=== PATIENT | male | born 1935 | race Caucasian/White ===

== ENCOUNTER → 2017-12-11 13:24 | Outpatient (CLI) | payer MEDICARE, OTHER, SELFPAY ==
[2017-12-11 14:42] LABS: Prothrombin Time 21.9 SECONDS (10.1-12.7)
== END ==
PROVIDERS: PCP Family Medicine; Visit Provider Family Medicine
DX: I48.91 Unspecified atrial fibrillation (principal)
CPT/HCPCS: 36415; 85610

== ENCOUNTER → 2018-01-18 09:00 | Outpatient (CLI) | payer MEDICARE, OTHER, SELFPAY ==
[2018-01-18 10:45] LABS: Alanine Aminotransferase 34 IU/L (21-72); Albumin 3.9 g/dL (3.5-5.0); Albumin Globulin Ratio 1.3 (1.0-2.8); Alkaline Phosphatase 70 U/L (38-126); Aspartate Aminotransferase 32 IU/L (17-59); BUN Creatinine Ratio 19.1 (6-22); Bilirubin Total 0.6 mg/dL (0.2-1.3); Blood Urea Nitrogen 21 mg/dL (9-20); Calcium 8.5 mg/dL (8.4-10.2); Carbon Dioxide 30 mmol/L (22-32); Chloride 105 mmol/L (98-107); Estimated Glomerular Filt Rate > 60.0 mL/min (>60); Globulin 2.9 g/dL (1.7-4.1); Glucose 97 mg/dL (80-110); HEMOLYSIS < 15 (0-50); Magnesium 2.1 mg/dL (1.6-2.3); Potassium 4.1 mmol/L (3.4-5.1); Sodium 144 mmol/L (137-145); Total Protein 6.8 g/dL (6.3-8.2)
[2018-01-18 11:13] LABS: Thyroid Stimulating Hormone 1.53 uIU/mL (0.47-4.68)
[2018-01-23 08:10] LABS: Lipoprofile NMR SEE SEPARATE REPORTS
== END ==
PROVIDERS: Family Provider Student in an Organized Health Care Education/Training Program; PCP Student in an Organized Health Care Education/Training Program; Visit Provider Specialist
DX: E78.2 Mixed hyperlipidemia (principal); I10 Essential (primary) hypertension; Z79.899 Other long term (current) drug therapy; I48.0 Paroxysmal atrial fibrillation
CPT/HCPCS: 36415; 80053; 83704; 83735; 84443

== ENCOUNTER → 2018-01-23 09:14 | Outpatient (CLI) | payer MEDICARE, OTHER, SELFPAY ==
--- NOTE | 2018-01-23 | DI.ECHO.S_ITS ---
[facility] +---------+ [facility] +---------+ : : [address] : : : : [place], [place] : : : : [id number] : : : : Phone: [phone] +---------+ Echocardiogram Report + + :Name: TYRESE ALBERTO Study Date: 01/23/2018 Height: 70 in : :[facility] Exam Location: [facility] Weight: 175 lb : : Gender: Male BSA: 2.0 m2 : :: 1935 Age: 83 yrs BP: 105/60 mmHg: :Reason For Study: MITRAL REGURGITATION : : Performed By: Brady Valera : :Referring: SUAD DEE : + + Interpretation Summary Left ventricular systolic function is normal without focal wall motion abnormalities with the ejection fraction visually estimated to be 65-70% and appears unchanged compared to the previous study. The left ventricle is mildly dilated and left ventricular wall thickness is mildly increased, both somewhat progressive compared to the previous study. The right ventricle is mild to moderately dilated and right ventricular systolic function is at the lower limits of normal, but appears similar compared to the previous study. The right ventricular systolic pressure is estimated to be at least 31 mmHg based on an estimated right atrial pressure of 8 mm Hg, and is likely similar compared to the previous study. Both atria are severely dilated. The left atrium has mildly increased in size since the prior echo exam. The mitral valve leaflets appear mildly thickened and highly mobile with redundan and significant bileaflet prolapse, the anterior leaflet more so than the posterior leaflet. There is probable moderate to severe mitral regurgitation with an eccentric jet of mitral regurgitation that is directed posteriorly that is more prominent but better imaged compared to the previous study. There is mild to moderate tricuspid regurgitation and mild to moderate pulmonic regurgitation that are similar compared to the previous study. 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 There is trace aortic regurgitation that is unchanged compared to the previous study. 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 Procedure: A two-dimensional transthoracic echocardiogram with color flow and Doppler was performed. The study quality was technically adequate. Comparison is made with the echocardiogram of 02/10/16. The patient was in normal sinus rhythm during the exam. Left Ventricle: The left ventricle is mildly dilated. Left ventricular wall thickness is mildly increased. This is both somewhat progressive compared to the previous study. Left ventricular systolic function is normal without focal wall motion abnormalities. The ejection fraction is estimated to be 65-70%. This is unchanged compared to the previous study. Diastolic function could not be accurately assessed due to contradictory data. Right Ventricle: The right ventricle is mild to moderately dilated. Right ventricular systolic function is at the lower limits of normal. This is likely similar compared to the previous study. Atria: Both atria are severely dilated. The left atrium has mildly increased in size since the prior echo exam. The interatrial septum is intact with no evidence for an atrial septal defect. Mitral Valve: The mitral valve leaflets appear mildly thickened and highly mobile with redundant, elongated chordae with increased mobility and significant bileaflet prolaps, the anterior mitral valve leaflet more so than the posterior leaflet. There is moderate to severe mitral regurgitation. There is an eccentric jet of mitral regurgitation that is directed posteriorly. This is more prominent but better imaged compared to the previous study. 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 The prosthetic aortic valve is well-seated. The gradients through the prosthetic aortic valve are within the normal range for this type of valve. There is trace aortic regurgitation. This is unchanged compared to the previous study. Tricuspid Valve: The tricuspid valve is normal in structure and function. There is mild to moderate tricuspid regurgitation. The right ventricular systolic pressure is estimated to be at least 31 mmHg based on an estimated right atrial pressure of 8 mm Hg. This is similar compared to the previous study. Pulmonic Valve: The pulmonic valve is not well seen, but is grossly normal. There is mild to moderate pulmonic regurgitation. This is similar compared to the previous study. 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 The aortic arch is mildly enlarged. This is unchanged compared to the previous study. The pulmonary artery is normal size. The IVC is dilated (diameter is greater than 2.1 cm) yet it collapses greater than 50% with a sniff. This suggests a right atrial pressure of 8 mm Hg. Pericardium/ Pleura There is no pericardial effusion. There is no pleural effusion. MMode/2D Measurements & Calculations LVIDd: 6.2 cm LVOT diam: 2.0 cm LVIDs: 3.3 cm Ao root diam: 5.0 cm FS: 47.1 % Aortic Jxn: 4.2 cm EPSS: 1.2 cm asc Aorta Diam: 4.4 cm IVSd: 1.2 cm Ao Arch Diam (Prox Trans): 3.5 cm LVPWd: 1.3 cm LV carrington. diameter/BSA (cm/m^2): 3.1 LV sys. diameter/BSA (cm/m^2): 1.7 LA dimension: 4.6 cm RA long axis: 6.1 cm LA A2 area: 47.7 cm2 RA area: 29.2 cm2 LA A4 area: 32.2 cm2 RA vol: 118.8 ml LA length (vol): 6.9 cm RA : 60.2 ml/m2 LA vol: 188.4 ml IVC diam: 2.3 cm LA vol index: 95.5 ml/m2 RVD1 (basal): 5.1 cm RVD2 (mid): 5.1 cm Doppler Measurements & Calculations Ao V2 max: 213.2 cm/sec LVOT Max Jake: 100.7 cm/sec Ao V2 mean: 138.3 cm/sec LV V1 max P.1 mmHg Ao max P.2 mmHg LV V1 VTI: 23.1 cm Ao mean P.8 mmHg DEANDRE(I,D): 1.7 cm2 Ao V2 VTI: 42.9 cm DEANDRE(V,D): 1.5 cm2 sev ratio: 0.54 DEANDRE indexed to BSA (cm^2/m^2): 0.85 MV E max jake: 105.8 cm/sec TR max jake: 239.4 cm/sec MV A max jake: 68.0 cm/sec TR max P.9 mmHg MV E/A: 1.6 PA V2 max: 84.6 cm/sec Med Peak E' Jake: 7.0 cm/sec PA V2 mean: 58.5 cm/sec E/E' med: 15.1 PA mean P.5 mmHg Lat Peak E' Jake: 12.1 cm/sec PA pr(Accel): 42.4 mmHg E/E' lat: 8.8 PA Accel Time: 0.08 sec E/e' average: 11.9 MV dec time: 0.25 sec Pulm A Revs Jake: 29.7 cm/sec Reading Physician:LEBRON
== END ==
PROVIDERS: Family Provider Student in an Organized Health Care Education/Training Program; PCP Student in an Organized Health Care Education/Training Program; Visit Provider Specialist
DX: I08.1 Rheumatic disorders of both mitral and tricuspid valves (principal); Z95.2 Presence of prosthetic heart valve
CPT/HCPCS: 93306

== ENCOUNTER → 2018-05-31 13:24 | Outpatient (CLI) | payer MEDICARE, OTHER, SELFPAY ==
--- NOTE | 2018-05-31 13:26 | DI.RAD.S_ITS ---
PROCEDURE: XR KNEE STANDING BI INDICATIONS: chronic pain TECHNIQUE: 3 views of the right knee, and 3 views of the left knee. COMPARISON: [facility] [place], [place], BILATERAL KNEE 3VW, 10/22/2013, 10:44. FINDINGS: Bones: No acute fractures or dislocations. On the right there is severe medial joint space narrowing with [id number] appearance. Scattered subchondral sclerosis and spurring. Moderate knee joint effusion. On the left, there is severe joint space narrowing of the medial and lateral compartments. Left knee joint effusion. There is a large infrapatellar loose body as before. 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 Mild interval progression bilaterally since 10/22/13 Large left infrapatellar loose body as before Dictated by: Glen Contreras M.D. on 05/31/2018 at 15:55 Approved by: Glen Contreras M.D. on 05/31/2018 at 16:02
== END ==
PROVIDERS: Family Provider Student in an Organized Health Care Education/Training Program; PCP Student in an Organized Health Care Education/Training Program; Visit Provider Physical Medicine & Rehabilitation
DX: M17.0 Bilateral primary osteoarthritis of knee (principal); M25.462 Effusion, left knee; M25.461 Effusion, right knee; M23.42 Loose body in knee, left knee; I48.91 Unspecified atrial fibrillation; Z95.2 Presence of prosthetic heart valve; R26.89 Other abnormalities of gait and mobility; Z68.23 Body mass index [BMI] 23.0-23.9, adult
CPT/HCPCS: 73565; 99214

== ENCOUNTER → 2018-07-23 08:55 | Outpatient (CLI) | payer MEDICARE, OTHER, SELFPAY ==
[2018-07-23 10:36] LABS: Alanine Aminotransferase 20 IU/L (21-72); Albumin 3.4 g/dL (3.5-5.0); Albumin Globulin Ratio 1.4 (1.0-2.8); Alkaline Phosphatase 62 U/L (38-126); Aspartate Aminotransferase 24 IU/L (17-59); Bilirubin Total 0.7 mg/dL (0.2-1.3); Blood Urea Nitrogen 17 mg/dL (9-20); Calcium 8.5 mg/dL (8.4-10.2); Carbon Dioxide 30 mmol/L (22-32); Chloride 103 mmol/L (98-107); Estimated Glomerular Filt Rate > 60.0 mL/min (>60); Globulin 2.5 g/dL (1.7-4.1); Glucose 87 mg/dL (80-110); HEMOLYSIS < 15 (0-50); Magnesium 2.2 mg/dL (1.6-2.3); Potassium 4.4 mmol/L (3.4-5.1); Sodium 138 mmol/L (137-145); Total Protein 5.9 g/dL (6.3-8.2)
[2018-07-25 08:33] LABS: Lipoprofile NMR SEE SEPERATE REPORT
== END ==
PROVIDERS: PCP Student in an Organized Health Care Education/Training Program; Visit Provider Specialist
DX: I48.0 Paroxysmal atrial fibrillation (principal); E78.2 Mixed hyperlipidemia
CPT/HCPCS: 36415; 80053; 83704; 83735

== ENCOUNTER → 2019-05-13 09:08 | Outpatient (CLI) | payer MEDICARE, OTHER, SELFPAY ==
[2019-05-13 11:06] LABS: Alanine Aminotransferase 22 IU/L (<50); Albumin 3.7 g/dL (3.5-5.0); Albumin Globulin Ratio 1.3 (1.0-2.8); Alkaline Phosphatase 80 U/L (38-126); Aspartate Aminotransferase 39 IU/L (17-59); Bilirubin Total 0.6 mg/dL (0.2-1.3); Blood Urea Nitrogen 18 mg/dL (9-20); Calcium 8.7 mg/dL (8.4-10.2); Carbon Dioxide 31 mmol/L (22-32); Chloride 105 mmol/L (98-107); Estimated Glomerular Filt Rate > 60.0 mL/min (>60); Globulin 2.9 g/dL (1.7-4.1); Glucose 90 mg/dL (80-110); HEMOLYSIS < 15 (0-50); Magnesium 2.1 mg/dL (1.6-2.3); Potassium 4.6 mmol/L (3.4-5.1); Sodium 139 mmol/L (137-145); Total Protein 6.6 g/dL (6.3-8.2)
[2019-05-15 12:01] LABS: Cholesterol, Total 152 mg/dL (100-199); HDL-Cholesterol 70 mg/dL (>39); HDL-Particle (Total) 44.2 umol/L (>=30.5); Historical Reading Comment: (.); LDL Particle 793 nmol/L (<1000); LDL Size 20.6 nm (>20.5); LDL-Cholsterol 66 mg/dL (0-99); LP-IR Score 42 (<=45); Small LDL- Particle 302 nmol/L (<=527); Triglycerides 79 mg/dL (0-149)
== END ==
PROVIDERS: PCP Student in an Organized Health Care Education/Training Program; Referring Provider Specialist; Visit Provider Specialist
DX: I48.0 Paroxysmal atrial fibrillation (principal); E78.2 Mixed hyperlipidemia
CPT/HCPCS: 36415; 80053; 80061; 83704; 83735

== ENCOUNTER → 2019-05-15 12:44 | Outpatient (CLI) | payer MEDICARE, OTHER, SELFPAY ==
--- NOTE | 2019-05-15 | DI.ECHO.S_ITS ---
[facility] [facility] +---------+ Hospital +---------+ : : [address] : : : : [place] : : : : [id number] : : : : Phone: [phone] +---------+ Echocardiogram Report + + :Name: TYRESE ALBERTO Study Date: 05/15/2019 Height: 70 in : :[facility] Weight: 170 lb : : Gender: Male BSA: 1.9 m2 : :: 1935 Age: 84 yrs BP: 142/88 mmHg: :Reason For Study: Mitral Insufficiency : :Ordering Physician: Suad : :Ulises Performed By: Fauzia Newman : :Referring: SUAD DEE : + + Interpretation Summary Left ventricular systolic function is normal without focal wall motion abnormalities with the ejection fraction visually estimated to be 65-70%. Left ventricular size is at the upper limits of normal with wall thickness that is mild-moderately increased but appears unchanged compared to the previous study. Diastolic function could not be accurately assessed due to atrial fibrillation. There has been no significant change since the previous study. The right ventricle is at the upper limits of normal in size and systolic function is mildly reduced and appears slightly smaller compared to the previous study. The right ventricular systolic pressure is estimated to be at least 42 mmHg based on an estimated right atrial pressure of 8 mm Hg, and is likely modestly higher compared to the previous study. Both atria are severely dilated but unchanged compared to the previous study. Redundant elongated chordae are noted with bileaflet prolapse, anterior leaflet more than posterior leaflet, with probable moderate to severe mitral regurgitation with an eccentric jet of mitral regurgitation that is directed posteriorly but is not well seen yet grossly appears unchanged from the previous study, if anything slightly less impressive. 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 There is moderate tricuspid regurgitation that is slightly more prominent compared to the previous study. There is moderate pulmonic regurgitation that is unchanged compared to the previous study. 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 While the aortic arch measures larger, it was measured in a different location than on the previous study. The patient was in atrial fibrillation with heart rates between 98-116 bpm during the exam which is new and faster compared to the previous study. Procedure: A two-dimensional transthoracic echocardiogram with color flow and Doppler was performed. The study quality was technically adequate. Comparison is made with the echocardiogram of 01/23/2018. The patient was in atrial fibrillation with heart rates between 98-116 bpm during the exam. This is new and faster compared to the previous study. Left Ventricle: Left ventricular size is at the upper limits of normal. Left ventricular wall thickness is mild-moderately increased. This is unchanged compared to the previous study. Left ventricular systolic function is normal without focal wall motion abnormalities. The ejection fraction is estimated to be 65-70%. Diastolic function could not be accurately assessed due to atrial fibrillation. There has been no significant change since the previous study. Right Ventricle: The right ventricle is at the upper limits of normal in size. Right ventricular systolic function is mildly reduced. This is slightly smaller compared to the previous study. Atria: Both atria are severely dilated. This is unchanged compared to the previous study. There is no Doppler evidence for an interatrial shunt. Mitral Valve: The mitral valve leaflets appear mildly thickened, but open well. Redundant elongated chordae are noted. with bileaflet prolapse, anterior leaflet more than posterior leaflet. There is moderate to severe mitral regurgitation. There is an eccentric jet of mitral regurgitation that is directed posteriorly. that is not well seen but grossly appears unchanged from the previous study, if anything slightly less impressive. 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 The prosthetic aortic valve is well-seated. The gradients through the prosthetic aortic valve are within the normal range for this type of valve. There is trace aortic regurgitation. There has been no significant change since the previous study. Tricuspid Valve: The tricuspid valve is normal in structure and function. There is moderate tricuspid regurgitation. This is slightly more prominent compared to the previous study. The right ventricular systolic pressure is estimated to be at least 42 mmHg based on an estimated right atrial pressure of 8 mm Hg. and is likely modestly higher compared to the previous study. Pulmonic Valve: The pulmonic valve is not well visualized. There is moderate pulmonic regurgitation. This is unchanged compared to the previous study. 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 The aortic arch is moderately enlarged. This is likely unchanged compared to the previous study. While thge aortic arch measures larger, it was measured in a different location than on the previous study. The IVC is dilated (diameter is greater than 2.1 cm) yet it collapses greater than 50% with a sniff. This suggests a right atrial pressure of 8 mm Hg. Pericardium/ Pleura There is no pericardial effusion. There is no pleural effusion. MMode/2D Measurements & Calculations LVIDd: 5.7 cm LVOT diam: 2.4 cm LVIDs: 3.2 cm Ao root diam: 4.7 cm FS: 43.5 % asc Aorta Diam: 4.0 cm IVSd: 1.5 cm Ao Arch Diam (Prox Trans): 4.0 cm LVPWd: 1.2 cm LV carrington. diameter/BSA (cm/m^2): 2.9 LV sys. diameter/BSA (cm/m^2): 1.7 LA A2 area: 43.4 cm2 RA long axis: 7.4 cm LA A4 area: 35.8 cm2 RA area: 30.3 cm2 LA length (vol): 7.4 cm RA vol: 105.7 ml LA vol: 177.4 ml RA : 54.2 ml/m2 LA vol index: 91.1 ml/m2 IVC diam: 2.2 cm RVD1 (basal): 4.3 cm Doppler Measurements & Calculations Ao V2 max: 219.1 cm/sec LVOT Max Tad: 108.1 cm/sec Ao V2 mean: 134.6 cm/sec LV V1 max P.7 mmHg Ao max P.3 mmHg LV V1 VTI: 14.5 cm Ao mean P.9 mmHg DEANDRE(I,D): 2.6 cm2 Ao V2 VTI: 26.0 cm DEANDRE(V,D): 2.3 cm2 sev ratio: 0.56 DEANDRE indexed to BSA (cm^2/m^2): 1.3 MV E max tad: 149.9 cm/sec TR max tad: 290.2 cm/sec MV A max tad: 1.3 cm/sec TR max P.8 mmHg MV E/A: 112.5 PA V2 max: 73.2 cm/sec Med Peak E' Tad: 8.4 cm/sec PA V2 mean: 46.8 cm/sec E/E' med: 17.8 PA mean P.0 mmHg Lat Peak E' Tad: 18.6 cm/sec PA pr(Accel): 61.9 mmHg E/E' lat: 8.1 PA Accel Time: 0.03 sec E/e' average: 12.9 MV dec time: 0.13 sec MVA(VTI): 2.6 cm2 MR ERO: 0.60 cm2 MV V2 mean: 101.3 cm/sec MR PISA: 6.7 cm2 MV mean P.8 mmHg MR flow rate: 318.9 cm3/sec MV V2 VTI: 25.6 cm MR PISA radius: 1.0 cm SV(LVOT): 66.9 ml Reading Physician:LEBRON
== END ==
PROVIDERS: PCP Student in an Organized Health Care Education/Training Program; Referring Provider Specialist; Visit Provider Specialist
DX: I08.1 Rheumatic disorders of both mitral and tricuspid valves (principal); I48.91 Unspecified atrial fibrillation; Z95.2 Presence of prosthetic heart valve
CPT/HCPCS: 93306

== ENCOUNTER → 2020-03-31 10:52 | Outpatient (CLI) | payer MEDICARE, OTHER, SELFPAY ==
[2020-03-31 12:10] LABS: Alanine Aminotransferase 19 IU/L (<50); Albumin 3.4 g/dL (3.5-5.0); Albumin Globulin Ratio 1.3 (1.0-2.8); Alkaline Phosphatase 76 U/L (38-126); Aspartate Aminotransferase 36 IU/L (17-59); BUN Creatinine Ratio 18.4 (6-22); Blood Urea Nitrogen 19 mg/dL (9-20); Calcium 8.6 mg/dL (8.4-10.2); Carbon Dioxide 32 mmol/L (22-32); Chloride 103 mmol/L (98-107); Estimated Glomerular Filt Rate > 60.0 mL/min (>60); Globulin 2.6 g/dL (1.7-4.1); Glucose 101 mg/dL (80-110); HEMOLYSIS < 15 (0-50); Magnesium 2.1 mg/dL (1.6-2.3); Potassium 4.5 mmol/L (3.4-5.1); Sodium 137 mmol/L (137-145)
[2020-04-06 10:25] LABS: LDL Particle SEE SEPARATE REPORTS
== END ==
PROVIDERS: PCP Student in an Organized Health Care Education/Training Program; Visit Provider Physician Assistant Medical
DX: E78.00 Pure hypercholesterolemia, unspecified (principal); I48.19 Other persistent atrial fibrillation
CPT/HCPCS: 36415; 80053; 80061; 83704; 83735

== ENCOUNTER → 2020-04-13 16:00 | Outpatient (CLI) | payer MEDICARE, OTHER, SELFPAY ==
--- NOTE | 2020-04-13 | DI.ECHO.S_ITS ---
[facility] +---------+ Hospital +---------+ : : [address] : : : : [place] : : : : [id number] : : : : Phone: [phone] : : [phone] +---------+ Echocardiogram Report + + :Name: TYRESE ALBERTO Study Date: 04/13/2020 Height: 68 in : :[facility] ReadingLocation: Weight: 170 lb : : Gender: Male BSA: 1.9 m2 : :: 1935 Age: 85 yrs BP: 105/71 mmHg: :Reason For Study: MITRAL INSUFFICIENCY : :Ordering Physician: LUIZ, : :SUAD Performed By: Fauzia Newman : :Referring: SUAD DEE : + + Interpretation Summary The left ventricle remains mildly enlarged but similar to the previous study with normal left ventricular systolic function with an estimated ejection fraction of 60 to 70% without any focal wall motion abnormality. While diastolic function cannot be accurately assessed, it grossly appears unchanged compared to the previous study. The right ventricle is moderately enlarged and slightly larger compared to the previous study. There is mildly reduced systolic function that remains unchanged. Right ventricular systolic pressure is estimated at 52 mmHg with a CVP of 8 mmHg, likely slightly higher compared to the previous study. Both atria are severely enlarged and both have increased in size since the previous study. There continues to be probable bileaflet mitral valve prolapse, anterior more than the posterior leaflet, with redundant chordae. While the severity of mitral regurgitation is challenging to quantitate, is at least moderate in severity and more likely moderate or severe but likely unchanged from the previous exam. The mechanical aortic valve appears stable and functioning normally. There is mild to moderate tricuspid regurgitation and moderate pulmonic valve regurgitation that appear unchanged from the previous study. The aortic root is severely enlarged at 5.0 cm compared to 4.7 cm previously. The ascending aorta and aortic arch remained moderately enlarged at 4.1 cm and 3.8 cm, respectively, compared to 4.0 cm and 4.0 cm, previously. The patient was in atrial fibrillation at 75 to 95 bpm which is slightly slower compared to the previous study. Procedure: A two-dimensional transthoracic echocardiogram with color flow and Doppler was performed. The study quality was technically adequate. Comparison is made with the echocardiogram of 05/15/2019. The patient was in atrial fibrillation with heart rates between 77-96 bpm during the exam. This is slightly slower compared to the previous study. Left Ventricle: There is mild concentric left ventricular hypertrophy. The left ventricle is mildly dilated. The estimated left ventricular end diastolic volume is 107 ml. This is unchanged compared to the previous study. Left ventricular systolic function appears normal without focal wall motion abnormalities. Left ventricular ejection fraction is estimated to be 60 to 70% with considerable [id number] variability. Diastolic function could not be accurately assessed due to atrial fibrillation. This is unchanged compared to the previous study. Right Ventricle: The right ventricle is moderately dilated. This is mildly larger compared to the previous study. Right ventricular systolic function is mildly reduced. This is unchanged compared to the previous study. Atria: Both atria are severely dilated. Both atria have significantly increased in size since the prior echo exam. There is no Doppler evidence for an interatrial shunt. Mitral Valve: The mitral valve leaflets appear mildly thickened, but open well. Redundant elongated chordae are noted. There is prolapse of the anterior mitral valve leaflet. There is prolapse of the posterior mitral valve leaflet (s). Mitral regurgitation is present but is difficult to quantitate but is likely at least moderate in severity and more likely moderate??severe but likely unchanged from the previous study. There appears to be an eccentric regurgitant jet directed posteriorly but is not well characterized. 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 The prosthetic aortic valve is well-seated. The gradients through the prosthetic aortic valve are within the normal range for this type of valve. There is probable normal prosthetic aortic valve function. The aortic valve mean gradient is 11 mmHg. The peak aortic velocity is 1.68 m/sec. Tricuspid Valve: The tricuspid valve leaflets are thin and pliable. There is mild to moderate tricuspid regurgitation. The right ventricular systolic pressure is estimated to be at least 52 mmHg based on an estimated right atrial pressure of 8 mm Hg. This is similar, perhaps slightly higher compared to the previous study. Pulmonic Valve: The pulmonic valve is not well visualized. There is moderate to severe pulmonic regurgitation. This is unchanged to slightly more prominent compared to the previous study. 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 This is slightly larger compared to the previous study. The ascending aorta is moderately enlarged. The aortic arch is moderately enlarged. This is unchanged compared to the previous study. The IVC is dilated (diameter is greater than 2.1 cm) yet it collapses greater than 50% with a sniff. This suggests a right atrial pressure of 8 mm Hg. Pericardium/ Pleura There is no pericardial effusion. There is no pleural effusion. MMode/2D Measurements & Calculations LVIDd: 5.5 cm LVOT diam: 2.7 cm LVIDs: 3.5 cm Ao root diam: 5.0 cm FS: 37.4 % asc Aorta Diam: 4.1 cm IVSd: 1.4 cm Ao Arch Diam (Prox Trans): 3.8 cm LVPWd: 1.0 cm LV carrington. diameter/BSA (cm/m^2): 2.9 LV sys. diameter/BSA (cm/m^2): 1.8 LA A2 area: 55.1 cm2 RA long axis: 7.2 cm LA A4 area: 43.1 cm2 RA area: 34.2 cm2 LA length (vol): 8.1 cm RA vol: 137.2 ml LA vol: 248.7 ml RA : 71.9 ml/m2 LA vol index: 130.4 ml/m2 IVC diam: 2.2 cm RVD1 (basal): 4.1 cm TAPSE: 1.4 cm Doppler Measurements & Calculations Ao V2 max: 168.2 cm/sec LVOT Max Tad: 77.7 cm/sec Ao V2 mean: 110.9 cm/sec LV V1 max P.4 mmHg Ao max P.3 mmHg LV V1 VTI: 12.6 cm Ao mean P.7 mmHg DEANDRE(I,D): 3.4 cm2 Ao V2 VTI: 21.9 cm DEANDRE(V,D): 2.7 cm2 sev ratio: 0.58 DEANDRE indexed to BSA (cm^2/m^2): 1.8 MV E max tad: 124.2 cm/sec TR max tad: 331.9 cm/sec MV A max tad: 2.8 cm/sec TR max P.1 mmHg MV E/A: 43.7 PA V2 max: 44.5 cm/sec Med Peak E' Tad: 7.1 cm/sec PA V2 mean: 29.3 cm/sec E/E' med: 17.5 PA mean P.41 mmHg Lat Peak E' Tad: 15.1 cm/sec PA pr(Accel): 51.6 mmHg E/E' lat: 8.2 E/e' average: 12.9 MV dec time: 0.15 sec MR ERO: 0.86 cm2 MR PISA: 9.9 cm2 SV(LVOT): 73.5 ml MR flow rate: 416.4 cm3/sec MR PISA radius: 1.3 cm Reading Physician:07:20 AM
== END ==
PROVIDERS: PCP Student in an Organized Health Care Education/Training Program; Referring Provider Specialist; Visit Provider Specialist
DX: I08.1 Rheumatic disorders of both mitral and tricuspid valves (principal); I77.810 Thoracic aortic ectasia; Z95.2 Presence of prosthetic heart valve
CPT/HCPCS: 93306

== ENCOUNTER → 2020-04-27 13:34 | Outpatient (CLI) | payer MEDICARE, OTHER, SELFPAY ==
[2020-04-27 15:49] LABS: Magnesium 2.2 mg/dL (1.6-2.3)
== END ==
PROVIDERS: PCP Student in an Organized Health Care Education/Training Program; Referring Provider Specialist; Visit Provider Specialist
DX: I48.19 Other persistent atrial fibrillation (principal)
CPT/HCPCS: 36415; 83735

== ENCOUNTER → 2020-04-30 11:17 | Outpatient (CLI) | payer MEDICARE, OTHER, SELFPAY ==
[2020-04-30 12:08] LABS: BUN Creatinine Ratio 25.7 (6-22); Blood Urea Nitrogen 26 mg/dL (9-20); Calcium 8.7 mg/dL (8.4-10.2); Carbon Dioxide 33 mmol/L (22-32); Chloride 102 mmol/L (98-107); Estimated Glomerular Filt Rate > 60.0 mL/min (>60); Glucose 101 mg/dL (80-110); HEMOLYSIS < 15 (0-50); Potassium 3.9 mmol/L (3.4-5.1); Sodium 137 mmol/L (137-145)
== END ==
PROVIDERS: PCP Student in an Organized Health Care Education/Training Program; Referring Provider Specialist; Visit Provider Specialist
DX: I48.19 Other persistent atrial fibrillation (principal)
CPT/HCPCS: 36415; 80048

== ENCOUNTER → 2020-08-31 08:53 | Outpatient (CLI) | payer MEDICARE, OTHER, SELFPAY ==
[2020-08-31 10:31] LABS: INR 4.3 (0.9-1.3); Prothrombin Time 50.4 SECONDS (10.1-12.7)
== END ==
PROVIDERS: PCP Student in an Organized Health Care Education/Training Program; Referring Provider Student in an Organized Health Care Education/Training Program; Visit Provider Student in an Organized Health Care Education/Training Program
DX: Z79.01 Long term (current) use of anticoagulants (principal)
CPT/HCPCS: 36415; 85610

== ENCOUNTER → 2020-09-28 09:32 | Outpatient (CLI) | payer MEDICARE, OTHER, SELFPAY ==
[2020-09-28 10:37] LABS: Alanine Aminotransferase 17 IU/L (<50); Albumin 3.3 g/dL (3.5-5.0); Albumin Globulin Ratio 1.1 (1.0-2.8); Alkaline Phosphatase 64 U/L (38-126); Aspartate Aminotransferase 31 IU/L (17-59); BUN Creatinine Ratio 16.3 (6-22); Bilirubin Total 0.8 mg/dL (0.2-1.3); Blood Urea Nitrogen 17 mg/dL (9-20); Calcium 8.8 mg/dL (8.4-10.2); Carbon Dioxide 31 mmol/L (22-32); Chloride 103 mmol/L (98-107); Cholesterol 120 mg/dL (140-199); Estimated Glomerular Filt Rate > 60.0 mL/min (>60); Globulin 2.9 g/dL (1.7-4.1); Glucose 98 mg/dL (80-110); HDL Cholesterol 49 mg/dL (40-60); HEMOLYSIS < 15 (0-50); LDL Cholesterol Calculated 53 mg/dL (<100); Potassium 3.8 mmol/L (3.4-5.1); Sodium 138 mmol/L (137-145); Total Protein 6.2 g/dL (6.3-8.2); Triglycerides 88 mg/dL (35-150)
== END ==
PROVIDERS: PCP Student in an Organized Health Care Education/Training Program; Referring Provider Specialist; Visit Provider Specialist
DX: E78.2 Mixed hyperlipidemia (principal); I48.19 Other persistent atrial fibrillation
CPT/HCPCS: 36415; 80053; 80061; 83735

== ENCOUNTER → 2020-12-17 12:35 | Outpatient (CLI) | payer MEDICARE, OTHER, SELFPAY ==
[2020-12-17 13:11] LABS: INR 4.1 (0.9-1.3); Prothrombin Time 47.3 SECONDS (10.1-12.7)
== END ==
PROVIDERS: PCP Student in an Organized Health Care Education/Training Program; Referring Provider Student in an Organized Health Care Education/Training Program; Visit Provider Student in an Organized Health Care Education/Training Program
DX: Z79.01 Long term (current) use of anticoagulants (principal)
CPT/HCPCS: 36415; 85610

== ENCOUNTER → 2021-05-19 09:51 | Outpatient (CLI) | payer MEDICARE, OTHER, SELFPAY ==
[2021-05-19 10:51] LABS: Alanine Aminotransferase 23 IU/L (<50); Albumin 3.4 g/dL (3.5-5.0); Albumin Globulin Ratio 1.3 (1.0-2.8); Aspartate Aminotransferase 34 IU/L (17-59); BUN Creatinine Ratio 19.4 (6-22); Bilirubin Total 0.8 mg/dL (0.2-1.3); Blood Urea Nitrogen 20 mg/dL (9-20); Calcium 8.5 mg/dL (8.4-10.2); Carbon Dioxide 32 mmol/L (22-32); Chloride 103 mmol/L (98-107); Estimated Glomerular Filt Rate > 60.0 mL/min (>60); Globulin 2.6 g/dL (1.7-4.1); Glucose 96 mg/dL (80-110); HEMOLYSIS < 15 (0-50); Magnesium 2.2 mg/dL (1.6-2.3); Potassium 4.2 mmol/L (3.4-5.1); Sodium 138 mmol/L (137-145)
[2021-05-19 11:54] LABS: Alkaline Phosphatase 58 U/L (38-126)
[2021-05-22 12:11] LABS: Cholesterol, Total 143 mg/dL (100-199); HDL-Cholesterol 64 mg/dL (>39); HDL-Particle (Total) 41.2 umol/L (>=30.5); LDL Particle 943 nmol/L (<1000); LDL Size 21.1 nm (>20.5); LDL-Cholsterol 66 mg/dL (0-99); LP-IR Score 44 (<=45); Small LDL- Particle 359 nmol/L (<=527); Triglycerides 64 mg/dL (0-149)
== END ==
PROVIDERS: PCP Student in an Organized Health Care Education/Training Program; Visit Provider Specialist
DX: I48.19 Other persistent atrial fibrillation (principal); E78.00 Pure hypercholesterolemia, unspecified; E78.2 Mixed hyperlipidemia
CPT/HCPCS: 36415; 80053; 80061; 83704; 83735

== ENCOUNTER → 2021-05-24 08:15 | Outpatient (CLI) | payer MEDICARE, OTHER, SELFPAY ==
--- NOTE | 2021-05-24 | DI.ECHO.S_ITS ---
[facility] +---------+ : : [address] : [address] : : : : [id number] : : : : Phone: [phone]---------+ Echocardiogram Report + + :Name: TYRESE ALBERTO Study Date: 05/24/2021 Height: 70 in : :[facility] ReadingLocation: Weight: 169 lb: : Gender: Male BSA: 1.9 m2 : :: 1935 Age: 86 yrs BP: 99/68 mmHg: :Reason For Study: MITRAL INSUFFICIENCY : :Ordering Physician: LUIZ, : :SUAD Performed By: Fauzia Newman : :Referring: SUAD DEE : + + Interpretation Summary Left ventricular systolic function remains vigorous with an estimated ejection fraction of 65 to 70% without any focal wall motion abnormality and appears unchanged from the previous exam. The left ventricle remains borderline enlarged with mild concentric LVH but is unchanged from the previous study. Diastolic function remains challenging to assess because of atrial fibrillation but is likely unchanged from the previous study. The right ventricle is mildly enlarged with mildly reduced systolic function and appears slightly smaller compared to the previous study. Right ventricular systolic pressure is estimated at 47 mmHg with a CVP of 3 mmHg, and is likely slightly lower compared to the previous exam. There is severe biatrial enlargement but both have mildly decreased in size. 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 There is mild tricuspid regurgitation that appears unchanged from the previous study. 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 The patient remained in atrial fibrillation at 75 to 100 bpm, similar to the previous exam. Procedure: A two-dimensional transthoracic echocardiogram with color flow and Doppler was performed. The study quality was technically adequate. Comparison is made with the echocardiogram of 04/13/2020. The patient was in atrial fibrillation with heart rates between 75-101 bpm during the exam. This is unchanged compared to the previous study. Left Ventricle: The left ventricle is borderline dilated. The estimated left ventricular end diastolic volume is 107 ml. There is mild concentric left ventricular hypertrophy. Left ventricular systolic function appears normal without focal wall motion abnormalities. The ejection fraction is estimated to be 65-70%. This is unchanged compared to the previous study. Diastolic function could not be accurately assessed due to atrial fibrillation. This is unchanged compared to the previous study. Right Ventricle: The right ventricle is mildly dilated. Right ventricular systolic function is mildly reduced. This is slightly smaller compared to the previous study. Atria: There is severe biatrial enlargement. Both atria have mildly decreased in size since the prior echo exam. There is no Doppler evidence for an interatrial shunt. Mitral Valve: The mitral valve leaflets appear mildly thickened, but open well. There is slight calcification extending into the subvalvular apparatus. There is prolapse of the anterior mitral valve leaflet. There is prolapse of the posterior mitral valve leaflet(s). Redundant elongated chordae are noted. There is an eccentric jet of mitral regurgitation that is directed posterolaterally. The degree of mitral regurgitation remains challenging to assess because of the eccentric nature of the jet but most likely is at least moderate in severity and more likely moderate or severe but likely unchanged from the previous exam. 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 The prosthetic aortic valve is well-seated. There is probable normal prosthetic aortic valve function. The peak aortic velocity is 1.8 m/sec. The aortic valve mean gradient is 6.4 mmHg. Tricuspid Valve: The tricuspid valve leaflets are thin and pliable. There is mild tricuspid regurgitation. This is unchanged compared to the previous study. The right ventricular systolic pressure is estimated to be at least 47 mmHg based on an estimated right atrial pressure of 3 mm Hg. This is slightly low compared to the previous study. Pulmonic Valve: The pulmonic valve is not well visualized. There is trace pulmonic regurgitation. 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 The aortic arch is moderately enlarged. This is unchanged compared to the previous study. The IVC is of normal diameter and collapses greater than 50% with a sniff. This suggests a low right atrial pressure of 3 mm Hg. Pericardium/ Pleura There is no pericardial effusion. There is no pleural effusion. MMode/2D Measurements & Calculations LVIDd: 5.4 cm LVOT diam: 2.3 cm LVIDs: 3.6 cm Ao root diam: 4.9 cm FS: 32.3 % asc Aorta Diam: 4.2 cm IVSd: 1.3 cm Ao Arch Diam (Prox Trans): 3.8 cm LVPWd: 1.2 cm LV carrington. diameter/BSA (cm/m^2): 2.8 LV sys. diameter/BSA (cm/m^2): 1.9 LA A2 area: 49.7 cm2 RA long axis: 7.3 cm LA A4 area: 39.2 cm2 RA area: 28.4 cm2 LA length (vol): 8.0 cm RA vol: 94.5 ml LA vol: 206.0 ml RA : 48.6 ml/m2 LA vol index: 106.0 ml/m2 IVC diam: 1.9 cm RVD1 (basal): 4.5 cm RVD2 (mid): 3.7 cm TAPSE: 1.7 cm Doppler Measurements & Calculations Ao V2 max: 181.7 cm/sec LVOT Max Tad: 89.6 cm/sec Ao V2 mean: 98.6 cm/sec LV V1 max P.2 mmHg Ao max P.4 mmHg LV V1 VTI: 16.8 cm Ao mean P.4 mmHg DEANDRE(I,D): 2.7 cm2 Ao V2 VTI: 24.9 cm DEANDRE(V,D): 2.0 cm2 sev ratio: 0.67 DEANDRE indexed to BSA (cm^2/m^2): 1.4 MV E max tad: 132.7 cm/sec TR max tad: 333.0 cm/sec MV A max tad: 1.5 cm/sec TR max P.3 mmHg MV E/A: 90.2 PA V2 max: 91.9 cm/sec Med Peak E' Tad: 7.6 cm/sec PA V2 mean: 64.2 cm/sec E/E' med: 17.6 PA mean P.9 mmHg Lat Peak E' Tad: 13.9 cm/sec PA pr(Accel): 44.7 mmHg E/E' lat: 9.5 E/e' average: 13.5 MV dec time: 0.16 sec MR ERO: 0.55 cm2 MR PISA: 6.8 cm2 SV(LVOT): 67.6 ml MR flow rate: 249.8 cm3/sec MR PISA radius: 1.0 cm Reading Physician:[id number] AM
== END ==
PROVIDERS: PCP Student in an Organized Health Care Education/Training Program; Referring Provider Specialist; Visit Provider Specialist
DX: I08.1 Rheumatic disorders of both mitral and tricuspid valves (principal); I77.810 Thoracic aortic ectasia; Z95.2 Presence of prosthetic heart valve
CPT/HCPCS: 93306

== ENCOUNTER → 2021-09-29 09:41 | Outpatient (CLI) | payer MEDICARE, OTHER, SELFPAY ==
[2021-09-29 12:16] LABS: Add Manual Diff / Slide Review NO; Basophils Absolute Auto 0 /uL (0-100); Basophils Percent Auto 1.1 % (0-2); Eosinophils Absolute Auto 100 /uL (0-450); Eosinophils Percent Auto 1.8 % (2-4); Hematocrit 33.8 % (41-53); Hemoglobin 11.1 g/dL (13.5-17.5); Lymphocytes Absolute Auto 800 /uL (1100-4500); Lymphocytes Percent Auto 17.7 % (25-40); Mean Corpuscular HGB Conc 32.9 % (30-36); Mean Corpuscular Hemoglobin 28.9 PG (26-34); Mean Corpuscular Volume 87.8 fL (80-100); Monocytes Absolute Auto 400 /uL (0-900); Monocytes Percent Auto 8.6 % (3-14); Neutrophils Absolute Auto 3300 /uL (1500-7000); Neutrophils Percent Auto 70.8 % (50-75); Platelet Count 227 X10^3/uL (150-400); Red Blood Cell Count 3.85 X10^6/uL (4.5-5.9); White Blood Cell Count 4.6 X10^3/uL (4.5-11.0)
[2021-09-29 12:58] LABS: BUN Creatinine Ratio 14.1 (6-22); Blood Urea Nitrogen 19 mg/dL (9-20); Calcium 8.3 mg/dL (8.4-10.2); Carbon Dioxide 31 mmol/L (22-32); Chloride 101 mmol/L (98-107); Estimated Glomerular Filt Rate 51 mL/min (>60); Glucose 78 mg/dL (80-110); HEMOLYSIS < 15 (0-50); Magnesium 2.1 mg/dL (1.6-2.3); Potassium 4.2 mmol/L (3.4-5.1); Sodium 139 mmol/L (137-145)
[2021-09-29 14:29] LABS: Thyroid Stimulating Hormone 1.63 uIU/mL (0.47-4.68)
== END ==
PROVIDERS: PCP Student in an Organized Health Care Education/Training Program; Referring Provider Specialist; Visit Provider Specialist
DX: I48.19 Other persistent atrial fibrillation (principal); Z79.01 Long term (current) use of anticoagulants
CPT/HCPCS: 36415; 80048; 83735; 84443; 85025

== ENCOUNTER → 2021-10-04 11:06 | Outpatient (CLI) | payer MEDICARE, OTHER, SELFPAY ==
--- NOTE | 2021-10-04 11:09 | DI.RAD.S_ITS ---
PROCEDURE: XR KNEE RT 3V INDICATIONS: Reassess knee and shoulder arthritis TECHNIQUE: 3 views of the knee were acquired. COMPARISON: [facility], CR, XR KNEE STANDING BI, 05/31/2018, 13:32. FINDINGS: Bones: Moderate to severe tricompartmental osteoarthritis is seen more prominent in medial femoral tibial compartment. No suspicious bony lesions. Soft tissues: Moderate suprapatellar joint effusion is noted. Chondrocalcinosis in medial and lateral femoral tibial compartments are seen. IMPRESSION: Moderate to severe tricompartmental osteoarthritis more prominent in medial femoral tibial compartment. No fracture or dislocation. Moderate joint effusion. Chondrocalcinosis as above. Dictated by: Tito Alejandro M.D. on 10/04/2021 at 13:05 Approved by: Tito Alejandro M.D. on 10/04/2021 at 13:06
--- NOTE | 2021-10-04 11:09 | DI.RAD.S_ITS ---
PROCEDURE: XR SHOULDER RT MIN 2V INDICATIONS: Reassess knee and shoulder arthritis TECHNIQUE: 3 views of the shoulder were acquired. COMPARISON: None. FINDINGS: Bones: No acute fracture or dislocation. There is severe glenohumeral joint space narrowing and osteophytosis. There is moderate acromioclavicular joint space narrowing. Soft tissues: No suspicious soft tissue calcifications. 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 Dictated by: Olivia Ortiz M.D. on 10/04/2021 at 13:34 Approved by: Olivia Ortiz M.D. on 10/04/2021 at 13:35
--- NOTE | 2021-10-04 11:09 | DI.RAD.S_ITS ---
PROCEDURE: XR KNEE LT 3V INDICATIONS: Reassess knee and shoulder arthritis TECHNIQUE: 3 views of the knee were acquired. COMPARISON: [facility], CR, XR KNEE STANDING BI, 05/31/2018, 13:32. FINDINGS: Bones: Moderate to severe tricompartmental osteoarthritis is again seen more prominent in medial femoral tibial compartment. No fractures or dislocations. No suspicious bony lesions. Soft tissues: Moderate to large suprapatellar joint effusion is seen. No suspicious soft tissue calcifications. IMPRESSION: Moderate to large suprapatellar joint effusion. Moderate to severe tricompartmental osteoarthritis more prominent in medial femoral tibial compartment. No acute fracture or dislocation. No patellar subluxation. Dictated by: Tito Alejandro M.D. on 10/04/2021 at 13:04 Approved by: Tito Alejandro M.D. on 10/04/2021 at 13:05
== END ==
PROVIDERS: PCP Student in an Organized Health Care Education/Training Program; Referring Provider Student in an Organized Health Care Education/Training Program; Visit Provider Student in an Organized Health Care Education/Training Program
DX: M19.011 Primary osteoarthritis, right shoulder (principal); M17.0 Bilateral primary osteoarthritis of knee; M25.462 Effusion, left knee; M25.461 Effusion, right knee
CPT/HCPCS: 73030; 73562

== ENCOUNTER 2022-01-09 11:59 | Inpatient (IN) | payer MEDICARE, OTHER, SELFPAY ==
[2022-01-09] VITALS (49 sets, daily range): BP systolic 66–149; BP diastolic 36–105; PULSE 102–120; RESP 20–57; TEMP 35.3–37.8; O2SAT 91–100; BMI 24.0
--- NOTE | 2022-01-09 11:48 | DI.RAD.S_ITS ---
PROCEDURE: XR CHEST 1V INDICATIONS: hallucinating, pale TECHNIQUE: One view of the chest was acquired. COMPARISON: None. FINDINGS: Surgical changes and devices: Remote replacement 2 valves Lungs and pleura: Lungs are clear. No pleural effusions or pneumothorax. Mediastinum: Mediastinal contours appear normal. Cardiomegaly. Bones and chest wall: No suspicious bony lesions. Overlying soft tissues appear unremarkable. IMPRESSION: Cardiomegaly. No evidence acute pulmonary process. Dictated by: Stone Toussaint M.D. on 01/09/2022 at 13:06 Approved by: Stone Toussaint M.D. on 01/09/2022 at 13:07
--- NOTE | 2022-01-09 11:50 | DI.CT.S_ITS ---
PROCEDURE: CT HEAD/BRAIN WO CON INDICATIONS: altered TECHNIQUE: Noncontrast 4.5 mm thick angled axial sections acquired from the foramen magnum to the vertex, with coronal and sagittal reformats. For radiation dose reduction, the following was used: automated exposure control, adjustment of mA and/or kV according to patient size. COMPARISON: None. FINDINGS: Image quality: Excellent. CSF spaces: Basal cisterns are patent. No extra-axial fluid collections. The ventricles are symmetric in size and shape. Brain: No intracranial bleeds or masses. There is cerebral volume loss for age, with resultant ventricular and sulcal prominence. There are periventricular and deep white matter chronic small vessel ischemic changes. There is intracranial internal carotid artery atherosclero benign-appearing dense pineal region calcifications. is. Skull and face: Calvarium and visualized facial bones appear intact, without suspicious lesions. Sinuses: Visualized sinuses and mastoids are clear. IMPRESSION: No evidence acute intracranial process. Dictated by: Stone Toussaint M.D. on 01/09/2022 at 12:56 Approved by: Stone Toussaint M.D. on 01/09/2022 at 13:00
[2022-01-09 12:49] LABS: Influenza A - CEPHEID Flu A NEGATIVE (NEGATIVE); Influenza B - CEPHEID Flu B NEGATIVE (NEGATIVE); Respiratory Syncytial Virus Negative (Negative)
[2022-01-09 12:51] LABS: COVID-19 CEPHEID 4-PLEX PCR Negative (Negative)
--- NOTE | 2022-01-09 13:28 | PC.NURSE ---
Sydney Hugger temperature switched to low, patient core temperature is 97.3
--- NOTE | 2022-01-09 13:44 | PC.NURSE ---
Sydney Hoskins turned off at this time.
--- NOTE | 2022-01-09 14:30 | DI.US.S_ITS ---
PROCEDURE: US RENAL COMPLETE INDICATIONS: UTI, sepsis, CHF TECHNIQUE: Real-time scanning was performed of the kidneys and bladder, with image documentation. COMPARISON: None. FINDINGS: Kidneys: Kidneys are normal in size. Right kidney measures 11.1 cm long; left kidney measures 12.7 cm long. Right renal cortical thickness is 1.2 cm; left renal cortical thickness is 1.1 cm. Renal cortical echotexture is normal. No hydronephrosis or nephrolithiasis. No suspicious solid mass lesions. Bladder: A Ruiz catheter decompresses the bladder. Miscellaneous: No free pelvic fluid. IMPRESSION: Normal size kidneys with no evidence of hydronephrosis. Dictated by: Stone Toussaint M.D. on 01/09/2022 at 15:32 Approved by: Stone Toussaint M.D. on 01/09/2022 at 15:33
[2022-01-09] MEDS: PIPERACILLIN/TAZO 4.5 GM in SODIUM CHLORIDE 0.9% 100 ML IV (15:14)
--- NOTE | 2022-01-09 15:39 | CM.MNRNOTE ---
All but single blanket removed from patient.
[2022-01-09] MEDS: LACTATED RINGERS 1,000 ML 100 ML IV (16:17)
--- NOTE | 2022-01-09 17:28 | P.HP_ITS ---
History of Present Illness History of Present Illness Date Patient Seen: 01/09/22 Time Patient Seen: 17:30 Date of Onset of Symptoms: 01/09/22 Chief complaint: Altered mental status Narrative: This is an 86 year old male with PMH of mechanical AV on coumadin (due to acromegaly), persistent afib, HLD who was brought in to the emergency room with altered mental status. Per son he was found slumped over and difficult to arouse this morning in between his bedroom and bathroom and was very difficult to arouse. Patient lives independently but his sons call him twice a day and have cameras set up in the house, and he had not had any complaints other than some back pain yesterday evening. He was seeing spiders when talking to the son after he was able to wake up slightly. EMS found him extremely hypotensive in the 60s systolic, was given phenylephrine in the field with improvement in BP. The patient denies complaints currently, though he is hypoxic with nasal cannula. He was agreeable to most things except intubation and CPR at this time. He has a POLST that states comfort measures, but per patient's son, the patient's spouse was recently admitted with sepsis and pyelo and improved and that he would want at least a trial of fluids and antibiotics. We discussed pressors as well, and patient was agreeable but further discussions with both sons at the bedside resulted in a decision of trial of a single pressor if needed, but if not improving to move to focus on comfort. In the emergency room, the patient was hypotensive, tachycardic, and on the hospital floor he was hypoxic on room air to the low 80s but responsive to 3-6 L of supplemental oxygen. Laboratory evaluation showed an unremarkable white blood cell count, acute anemia with a hemoglobin of 8.4 down from 11 previously, and thrombocytopenia with a platelet count of 116. Lactate was elevated at 4.7, creatinine is 3.64, T bili was 1.5, mild elevation in AST and ALT as well. CK level was 1158, troponin was 0.1-1 [place] [address]. Chest x-ray, head CT , and an ultrasound was performed which were unremarkable. Renal ultrasound was performed to rule out obstruction in the setting of NORBERTO a positive UA that was also noted in the emergency room. The patient was given a dose of Zosyn, initially the thought was that he would not want pressors but after discussion above, as well as continued hypotension I recommend initiation of Levophed at this time as he appears volume overloaded in the setting of sepsis and possible acute on chronic heart failure in the setting of his mechanical valve, but also remains hypotensive. Patient History Medical History Acromegaly (1999) Persistent atrial fibrillation Warfarin anticoagulation Surgical History History of aortic valve replacement (1999) Family & Social History Family history unavailable: Yes (Patient currently unable to recall family history due to altered mentation) Social History: household members none Prior Living Arrangements House Safety & Behavioral: Feels Safe in Current Yes Environment Been Physically Hurt or No Threatened By a Person Tobacco & Substance use: Smoking Status Never smoker alcohol intake current alcohol intake frequency holiday/special occasion Substance Use Type does not use Meds Home Medications and Allergies Home Medications Medication Instructions Recorded Confirmed Type rosuvastatin 20 mg tablet 20 mg PO DAILY 03/07/18 01/09/22 History furosemide 20 mg tablet 20 mg PO DAILY 07/13/20 01/09/22 History carvedilol 12.5 mg tablet 12.5 mg PO BID 06/02/21 01/09/22 History warfarin 5 mg tablet mg 01/09/22 History Allergies Allergy/AdvReac Type Severity Reaction Status Date / Time No Known Drug Allergies Allergy Verified 01/09/22 11:57 Review of Systems Review of Systems Narrative: All other systems reviewed with the patient and are negative unless otherwise stated. This is limited with current encephalopathy. Exam Vital Signs (past 8 hours): - 01/09/22 12:12 01/09/22 12:16 01/09/22 12:16 Temperature 95.5 F L 95.7 F L Pulse Rate 113 H 114 H Respiratory Rate 40 H 54 H Blood Pressure 78/45 L Pulse Oximetry 98 98 Oxygen Delivery Method Nasal Cannula Oxygen Flow Rate 6 01/09/22 12:20 01/09/22 12:20 01/09/22 12:25 Temperature 95.9 F L Pulse Rate 116 H Respiratory Rate 56 H Blood Pressure 74/44 L 77/42 L Pulse Oximetry 98 Oxygen Delivery Method Oxygen Flow Rate 01/09/22 12:25 01/09/22 12:30 01/09/22 12:39 Temperature 96.1 F L Pulse Rate 119 H 114 H Respiratory Rate 46 H 31 H Blood Pressure 95/73 Pulse Oximetry 91 99 Oxygen Delivery Method Nasal Cannula Oxygen Flow Rate 6 01/09/22 12:39 01/09/22 12:42 01/09/22 12:42 Temperature 96.3 F L 96.4 F L Pulse Rate 120 H 114 H Respiratory Rate 45 H 31 H Blood Pressure 107/56 L Pulse Oximetry 100 100 Oxygen Delivery Method Oxygen Flow Rate 01/09/22 12:45 01/09/22 12:45 01/09/22 12:50 Temperature 96.4 F L Pulse Rate 117 H Respiratory Rate 31 H Blood Pressure 93/38 L 71/36 L Pulse Oximetry 97 Oxygen Delivery Method Nasal Cannula Oxygen Flow Rate 6 01/09/22 12:50 01/09/22 12:55 01/09/22 12:55 Temperature 96.6 F L 96.6 F L Pulse Rate 118 H 117 H Respiratory Rate 48 H 37 H Blood Pressure 72/43 L Pulse Oximetry 97 97 Oxygen Delivery Method Nasal Cannula Oxygen Flow Rate 5 01/09/22 13:00 01/09/22 13:01 01/09/22 13:01 Temperature 96.8 F L 96.8 F L Pulse Rate 117 H 118 H Respiratory Rate 44 H 51 H Blood Pressure 72/51 L Pulse Oximetry 97 97 Oxygen Delivery Method Oxygen Flow Rate 01/09/22 13:05 01/09/22 13:05 01/09/22 13:10 Temperature 96.8 F L Pulse Rate 116 H Respiratory Rate 43 H Blood Pressure 82/56 L 81/45 L Pulse Oximetry 96 Oxygen Delivery Method Nasal Cannula Oxygen Flow Rate 5 01/09/22 13:10 01/09/22 13:15 01/09/22 13:15 Temperature 97.0 F L 97.2 F L Pulse Rate 112 H 113 H Respiratory Rate 40 H 36 H Blood Pressure 85/48 L Pulse Oximetry 97 97 Oxygen Delivery Method Oxygen Flow Rate 01/09/22 13:20 01/09/22 13:20 01/09/22 13:25 Temperature 97.2 F L Pulse Rate 114 H Respiratory Rate 33 H Blood Pressure 81/53 L 76/46 L Pulse Oximetry 97 Oxygen Delivery Method Oxygen Flow Rate 01/09/22 13:25 01/09/22 13:30 01/09/22 13:30 Temperature 97.3 F L 97.5 F L Pulse Rate 120 H 114 H Respiratory Rate 36 H 35 H Blood Pressure 78/39 L Pulse Oximetry 97 97 Oxygen Delivery Method Nasal Cannula Oxygen Flow Rate 6 01/09/22 13:35 01/09/22 13:35 01/09/22 13:40 Temperature 97.5 F L Pulse Rate 113 H Respiratory Rate 35 H Blood Pressure 68/41 L 75/48 L Pulse Oximetry 97 Oxygen Delivery Method Oxygen Flow Rate 01/09/22 13:40 01/09/22 13:45 01/09/22 13:45 Temperature 97.7 F 97.9 F Pulse Rate 115 H 118 H Respiratory Rate 38 H 34 H Blood Pressure 76/47 L Pulse Oximetry 97 97 Oxygen Delivery Method Oxygen Flow Rate 01/09/22 13:50 01/09/22 13:50 01/09/22 13:55 Temperature 97.9 F Pulse Rate 117 H Respiratory Rate 37 H Blood Pressure 93/48 L 81/45 L Pulse Oximetry 98 Oxygen Delivery Method Oxygen Flow Rate 01/09/22 13:55 01/09/22 14:00 01/09/22 14:00 Temperature 98.1 F 98.2 F Pulse Rate 116 H 114 H Respiratory Rate 33 H 32 H Blood Pressure 74/45 L Pulse Oximetry 96 96 Oxygen Delivery Method Nasal Cannula Oxygen Flow Rate 5 01/09/22 14:05 01/09/22 14:05 01/09/22 14:10 Temperature 98.2 F Pulse Rate 116 H Respiratory Rate 57 H Blood Pressure 77/51 L 87/52 L Pulse Oximetry 96 Oxygen Delivery Method Oxygen Flow Rate 01/09/22 14:10 01/09/22 14:15 01/09/22 14:15 Temperature 98.4 F 98.6 F Pulse Rate 114 H 113 H Respiratory Rate 54 H 43 H Blood Pressure 69/44 L Pulse Oximetry 97 96 Oxygen Delivery Method Oxygen Flow Rate 01/09/22 14:20 01/09/22 14:20 01/09/22 14:25 Temperature 98.6 F Pulse Rate 114 H Respiratory Rate 37 H Blood Pressure 66/50 L 71/52 L Pulse Oximetry 97 Oxygen Delivery Method Oxygen Flow Rate 01/09/22 14:25 01/09/22 14:30 01/09/22 14:30 Temperature 98.8 F 98.8 F Pulse Rate 118 H 113 H Respiratory Rate 33 H 32 H Blood Pressure 72/47 L Pulse Oximetry 96 92 Oxygen Delivery Method Nasal Cannula Oxygen Flow Rate 5 01/09/22 14:35 01/09/22 14:40 01/09/22 14:45 Temperature 99.0 F 99.0 F 99.1 F Pulse Rate 111 H 113 H 112 H Respiratory Rate 31 H 38 H 32 H Blood Pressure Pulse Oximetry 93 95 94 Oxygen Delivery Method Oxygen Flow Rate 01/09/22 14:50 01/09/22 14:50 01/09/22 14:55 Temperature 99.1 F 99.3 F Pulse Rate 112 H 114 H Respiratory Rate 32 H 32 H Blood Pressure 82/52 L Pulse Oximetry 98 95 Oxygen Delivery Method Oxygen Flow Rate 01/09/22 15:00 01/09/22 15:00 01/09/22 15:05 Temperature 99.3 F 99.5 F Pulse Rate 117 H 109 H Respiratory Rate 33 H 38 H Blood Pressure 81/50 L Pulse Oximetry 94 94 Oxygen Delivery Method Nasal Cannula Oxygen Flow Rate 6 01/09/22 15:10 01/09/22 15:10 01/09/22 15:15 Temperature 99.5 F 99.7 F H Pulse Rate 118 H 115 H Respiratory Rate 46 H 48 H Blood Pressure 78/47 L Pulse Oximetry 95 95 Oxygen Delivery Method Oxygen Flow Rate 01/09/22 15:20 01/09/22 15:20 01/09/22 15:25 Temperature 99.7 F H 99.9 F H Pulse Rate 118 H 117 H Respiratory Rate 40 H 33 H Blood Pressure 78/50 L Pulse Oximetry 95 Oxygen Delivery Method Oxygen Flow Rate 01/09/22 15:30 01/09/22 15:30 01/09/22 15:35 Temperature 99.9 F H 99.9 F H Pulse Rate 110 H 118 H Respiratory Rate 34 H 34 H Blood Pressure 71/54 L Pulse Oximetry Oxygen Delivery Method Oxygen Flow Rate 01/09/22 15:40 01/09/22 15:45 01/09/22 14:47 Temperature 100.0 F H 100.0 F H Pulse Rate 116 H 109 H Respiratory Rate 33 H 43 H Blood Pressure Pulse Oximetry Oxygen Delivery Method Nasal Cannula Oxygen Flow Rate 01/09/22 15:55 Temperature 98.4 F Pulse Rate 102 H Respiratory Rate 20 Blood Pressure 92/49 L Pulse Oximetry 99 Oxygen Delivery Method Oxygen Flow Rate 3 Oxygen Delivery Method Nasal Cannula Oxygen Flow Rate 3 Narrative Exam Narrative: General:? Patient is well developed and well nourished, acutely ill appearing elderly male with mild tachypnea but no acute distress. HEENT:? Normocephalic, atraumatic, extraocular muscles intact, oral pharynx is clear and mucous membranes are dry. Neck: supple and symmetric, trachea is midline, no cervical adenopathy. Negative for JVD Chest:? Normal AP diameter and contour without kyphoscoliosis, no tachypnea, equal chest rise bilaterally. Lungs:? CTA b/l no wheezing rhonchi or rales, poor effor. Cardio:?tachycardic and irregularly irregular, no m/r/g obvious Abdomen: S NT ND. Musculoskeletal:? Muscle strength and tone are equal within normal limits, no deformity. Extremities: 1- 2+ bilateral pitting edema, no cyanosis or clubbing, extremities are cold. Skin:? Pale,?cool extremities as noted above,dry and intact without rashes, ulcerations or petechiae.? Neuro:? lethargic but alert, oriented to name, month but not location or year (0, thinks he's in his house). No focal deficits. Psych:? Patient has a well-kept appearance, very agreeable and pleasant, calm with stable behavior. Objective ECG Impression: atrial fibrillation with RVR with premature supraventricular complexes, as interpreted by me. Non-specific ST changes in V4. Assessment & Plan Assessment & Plan narrative: This is an 86 year old male with PMH of mechanical AV on coumadin (due to acromegaly), persistent afib, HLD who was brought in to the emergency room with altered mental status, admitted to ICU for septic shock secondary to acute cystitis most likely. 1. Sepsis with septic shock, with acute metabolic encephalopathy, acute renal failure, acute respiratory failure with hypoxia, thrombocytopenia, myocardial injury secondary to acute cystitis - initially admitted to acute care but developed worsening hypotension, unable to give further fluids in setting of acute heart failure and mechanical valve. SOFA score of 10 as noted below. - start trial of levophed in setting of septic shock. family and patient amenable to trial of single pressor, but DNR/DNI and if worsening would like to be made comfortable. - start meropenem pending cultures, no risk factors for MRSA infection and likely urinary source. - continue perea and urine monitoring - admit labs Creat 3.64, LA 4.7, Tbili 1.5, Plt 116. - No BiPAP or advanced non-invasive ventilation, continue O2 Goals >90% - hold home diuretics and antihypertensives for now, if BP improves can trial diuresis - chest XR unremarkable, CT head unremarkable, consider RUQ US depending on LFTs, renal ultrasound unremarkable. 2. persistent atrial fibrillation with RVR - likely reactive in setting of sepsis, will hold beta parisa for now given hypotension, restart as able 3. History of AVR on coumadin - check INR, most recently within range a week ago per son. 4. Acute on chronic diastolic heart failure - probnp markedly elevated, likely in setting of sepsis - unable to diurese at this time, but likely worsening overload in setting of fluid resuscitation so will hold fluids. - consider echo depending on status in the next 24 hours and prognosis. 5. myocardial injury - no acute ischemic changes on EKG, though some nonspecific ST changes. No chest pain. Troponin 0.121. Will continue to follow. 6. HLD - can continue statin. 7. Goals of Care - Advanced Care planning - I spent a total of 20 minutes discussing advanced care planning with patient and sons. Okay with fluids, diuretics, and antibiotics for treatment at this time. Beyond this, in short, patient and family are wishing for trial of a single pressor if needed for septic shock, but no heroic measures. Discussed this would mean no advancement beyond Levophed. We discussed that his heart may not be able to tolerate this stress. Patient and family confirm DNR and DNI status. They do not wish to advance to aggressive non-invasive ventilation methods for hypoxia. Agreeable for PICC placement for pressor support and blood draw ability. 8. Acute rhabdomyolysis - possibly patient down for some time but likely less than 16 hours based on history from Son, atraumatic in nature - unable to give additional fluids at this time given heart failure - continue perea to monitor urine output. Code: DNR, surrogate is patient's son DVT: On coumadin I have utilized all available immediate resources to obtain, update, or review the patient's current medications. I spent 40 minutes providing critical care management this patient. This excludes time spent in performing separately billed procedures. COVID-19 COVID-19 status: Negative Time Spent With Patient Critical Care time: I spent a total of [] minutes of critical care time on this patient's care today; this time is exclusive of procedural time. Scores SOFA PaO2/FIO2: < 400 mmHg Platelets: < 150 Bilirubin: 1.2-1.9 mg/dL Hypotension: Dopamine >5 or norepinephrine <=0.1 [place] Coma Scale: 13-14 Renal: Creatinine 3.5-4.9 mg/dL or UOP <500 mL SOFA Score: 10 Quality VTE Deep Vein Thrombosis/Pulmonary Embolism Present on Admission: No
[2022-01-09] MEDS: NOREPINEPHRINE BITARTRATE/D5W 4 MG/250 ML PLAST..BAG 30 MG IV (18:59)
--- NOTE | 2022-01-09 19:12 | P.DN_ITS ---
Discharge Summary History of Illness Narrative: This is an 86 year old male with PMH of mechanical AV on coumadin (due to acromegaly), persistent afib, HLD who was brought in to the emergency room with altered mental status. Per son he was found slumped over and difficult to arouse this morning in between his bedroom and bathroom and was very difficult to arouse. Patient lives independently but his sons call him twice a day and have cameras set up in the house, and he had not had any complaints other than some back pain yesterday evening. He was seeing spiders when talking to the son after he was able to wake up slightly. EMS found him extremely hypotensive in the 60s systolic, was given phenylephrine in the field with improvement in BP.? The patient denies complaints currently, though he is hypoxic with nasal cannula. He was agreeable to most things except intubation and CPR at this time. He has a POLST that states comfort measures, but per patient's son, the patient's spouse was recently admitted with sepsis and pyelo and improved and that he would want at least a trial of fluids and antibiotics. We discussed pressors as well, and patient was agreeable but further discussions with both sons at the bedside resulted in a decision of trial of a single pressor if needed, but if not improv ing to move to focus on comfort. In the emergency room, the patient was hypotensive, tachycardic, and on the hospital floor he was hypoxic on room air to the low 80s but responsive to 3-6 L of supplemental oxygen.? Laboratory evaluation showed an unremarkable white blood cell count, acute anemia with a hemoglobin of 8.4 down from 11 previously, and thrombocytopenia with a platelet count of 116.? Lactate was elevated at 4.7, creatinine is 3.64, T bili was 1.5, mild elevation in AST and ALT as well.? CK level was 1158, troponin was 0.1-1 [place] [address].? Chest x-ray, head CT, and an ultrasound was performed which were unremarkable.? Renal ultrasound was performed to rule out obstruction in the setting of NORBERTO a positive UA that was also noted in the emergency room.? The patient was given a dose of Zosyn, initially the thought was that he would not want pressors but after discussion above, as well as continued hypotension I recommend initiation of Levophed at this time as he appears volume overloaded in the setting of sepsis and possible acute on chronic heart failure in the setting of his mechanical valve, but also remains hypotensive. Hospital Course Date of Admission: 01/09/22 14:32 Primary care provider: Jorge A Tapia MD Consults: 01/09/22 18:34 Consult to Tele-commercial marketing specialist Routine Comment: Consulting Provider: Nikolay [employer]ensiv[employer] Reason for consultation: Anatomic Pathology Assistant services Discharge provider: Nir Akers DO Discharge Diagnosis: 1. Sepsis with septic shock, with acute metabolic encephalopathy, acute renal failure, acute respiratory failure with hypoxia, thrombocytopenia, transaminitis, myocardial injury secondary to acute cystitis 2. persistent atrial fibrillation with RVR 3. History of AVR on coumadin 4. Acute on chronic diastolic heart failure 5. myocardial injury / possible NSTEMI 6. HLD 7. Goals of Care - Advanced Care planning 8. Acute rhabdomyolysis 9. Acute anemia, unclear etiology Hospital Course: This is an 86 year old male with PMH of mechanical AV on coumadin (due to acromegaly), persistent afib, HLD who was brought in to the emergency room with altered mental status. He was admitted with septic shock secondary to presumed urinary tract infection based on initial evaluation in the emergency room. He had multi-organ dysfunction including acute respiratory failure, myocardial injury / possible NSTEMI, acute renal failure, hypotension, and thrombocytopenia on admission labs. Initial discussions in the ER were focused on goals of care. He was admitted and continued on fluids and antibiotics initially. His BP improved but shortly after arrival to the hospital floor his BP dropped. He was clinically volume overloaded on exam with bilateral LE edema and developed bilateral rales with fluid administration for sepsis so additional fluid was unable to be given. Goals of care discussions were performed with family and patient, they wished for brief trial of pressors if needed but he did not want intubation or CPR. DNR/DNI status was continued. Levophed was initiated but shortly after arrival to the ICU, he became apnic, and then pulseless and at 19:05. He before additional workup including INR, additional troponins, or infectious workup could be performed. Time spent with patient: > 30 minutes.
--- NOTE | 2022-01-09 19:51 | PC.NURSE ---
Patient was moved to ICU bed 228 just before 7pm as bed was available to start levophed for blood pressure support. Patient became unresponsive with agonal respirations. Dr. Akers called and came immediately to bedside. Levophed gtt had just been started (see EMAR). Patient on 3L NC. Unable to obtain blood pressure. Patient without heart beat and respirations at 1905. Dr. Akers was able to reach his son Pedro by phone.
== END 2022-01-09 19:05 | disposition expired | DRG 871 ==
LOC: ED 13:21 → AC 14:34 → ICU 01-10 02:53
PROVIDERS: Admitting Provider Internal Medicine; Emergency Provider Emergency Medicine; PCP Student in an Organized Health Care Education/Training Program; Referring Provider Emergency Medicine; Visit Provider Internal Medicine
DX: A41.9 Sepsis, unspecified organism (principal); G93.41 Metabolic encephalopathy; R65.21 Severe sepsis with septic shock; J96.01 Acute respiratory failure with hypoxia; I50.33 Acute on chronic diastolic (congestive) heart failure; I21.4 Non-ST elevation (NSTEMI) myocardial infarction; N17.8 Other acute kidney failure; N30.00 Acute cystitis without hematuria; I48.19 Other persistent atrial fibrillation; M62.82 Rhabdomyolysis; I11.0 Hypertensive heart disease with heart failure; D69.6 Thrombocytopenia, unspecified; E78.5 Hyperlipidemia, unspecified; E22.0 Acromegaly and pituitary gigantism; Z95.4 Presence of other heart-valve replacement; Z66 Do not resuscitate; Z79.01 Long term (current) use of anticoagulants; Z20.822 Contact with and (suspected) exposure to COVID-19
CPT/HCPCS: 0241U; 36415; 36569; 70450; 71045; 76770; 80053; 81001; 82550; 82553; 83605; 83690; 83880; 84484; 85025; 87040; 87077; 87086; 87150; 93005; 96365; 99284; 99285; 99291; J2543